=== PATIENT | male | born 1990 | race Caucasian/White ===

== ENCOUNTER 2025-03-30 14:00 | Emergency (ER) | payer OTHER ==
[~2025-03-30] VITALS: Ht 175.3 cm; Wt 79.0 kg
[2025-03-30] MEDS ORDERED: METHADONE HCL10 MG PO (14:12)
[2025-03-30] MEDS ORDERED: ASPIRIN 81 MG CHEW PO ONE (14:15)
[2025-03-30 14:22] LABS: BASOPHILS 0.9 % (0.2-1.2); EOSINOPHILS 4.8 % (0.8-7.0); LYMPHOCYTES 28.7 % (21.8-53.1); MCH 29.8 PG (25.7-32.2); MCHC 34.8 g/dL (32.3-36.5); MCV 85.7 fL (79.0-92.2); MONOCYTES 7.7 % (5.3-12.2); NEUTROPHILS 57.8 % (34.0-67.9); RBC 4.96 M/uL (4.63-6.08)
[2025-03-30 14:40] LABS: ALT (SGPT) 37.0 U/L (14-59); AST (SGOT) 21.0 U/L (15-37); GLOMERULAR FILTRATION RATE,EST 76.0 mL/min (>60); PROTEIN, TOTAL 7.0 g/dL (6.4-8.2); UREA NITROGEN 26.0 mg/dL (7-18)
[2025-03-30 15:51] VITALS: BP 124/56
--- NOTE | 2025-03-30 22:15 | EKG ---
[facility] [address] [facility] [place] [address] Signed Normal sinus rhythm Normal ECG No previous ECGs available Confirmed by Angie Staley MD () on 03/30/2025 10:15:35 PM Electronically Signed By: ANGIE STALEY MD 03/30/255 PATIENT NAME: THELMA WALTON MARIBEL Electrocardiogram DATE OF : 88 PHYSICIAN: ANGIE STALEY MD REPORT #: [id number] REPORT IS CONFIDENTIAL AND NOT TO BE RELEASED WITHOUT AUTHORIZATION
== END 2025-03-30 15:52 | disposition home or self-care (01) ==
LOC: ED 14:00
PROVIDERS: Emergency Medicine
DX: R07.9 Chest pain, unspecified (principal); Z79.899 Other long term (current) drug therapy
CPT/HCPCS: 36415; 71045; 80053; 83735; 84484; 85025; 93005; 93010; 99285-25; A9270